=== PATIENT | male | born 1975 | race Caucasian/White ===

== ENCOUNTER 2017-09-25 08:29 | Emergency (ER) | payer BC ==
--- NOTE | 2017-09-25 08:55 | EDM.PDOC ---
ED HPI GENERAL MEDICAL PROBLEM - General Chief Complaint: Upper Extremity Injury/Pain Stated Complaint: RT SHOULDER HURTS Time Seen by Provider: 09/25/17 08:40 - History of Present Illness INITIAL COMMENTS - FREE TEXT/NARRATIVE: HISTORY AND PHYSICAL: History of present illness: The patient is a 42-year-old male with many years of right-sided shoulder pain and presents for reevaluation for persistent pain. 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 The patient has an appointment for physical therapy but cannot start that until next week. He is here requesting an MRI and any other medications he can provide to help him with the discomfort. He has no weakness in the right upper extremity and is right-hand dominant. He said he was told many years ago when he was in the [facility] that he had a rotator cuff injury but he did physical therapy and was told that it healed. He has never seen an orthopedic surgeon. He has seen a chiropractor in the past which was helping and less so that person one month ago but he has not returned. According to his family at the bedside he has been taking large doses of Aleve and ibuprofen but has no stomach pain Review of systems: As per history of present illness and below otherwise all systems reviewed and negative. Past medical history: As per history of present illness and as reviewed below otherwise noncontributory. Surgical history: As per history of present illness and as reviewed below otherwise noncontributory. Social history: No reported history of drug or alcohol abuse. Family history: As per history of present illness and as reviewed below otherwise noncontributory. Physical exam: Gen.: Well-developed overweight male who is nontoxic and vital signs been reviewed by me HEENT: Atraumatic, normocephalic, negative for conjunctival pallor or scleral icterus, mucous membranes moist, throat clear, neck supple, nontender, trachea midline. Lungs: Clear to auscultation, breath sounds equal bilaterally, chest nontender. Heart: S1S2, regular, negative for clicks, rubs, or JVD. Rate and rhythm no overt murmurs Abdomen: Nondistended , nontender. NABS, often Pelvis: Stable nontender. Genitourinary: Deferred. Rectal: Deferred. Extremities: Atraumatic, at the right shoulder there is no palpable bony tenderness or deformities and there is some trigger point tenderness on deep palpation of the joint space. The patient has decent range of motion passively and has some inhibition on full rotator cuff motion as well as some discomfort with abduction. Distally he has no neurosensory changes no palpable bony deformities and normal strength. The legs are negative for cords or calf pain. Neurovascular unremarkable. Neuro: Awake, alert, oriented. Cranial nerves II through XII unremarkable. Cerebellum unremarkable. Motor and sensory unremarkable throughout. Exam nonfocal. Diagnostics: [] Therapeutics: [] The patient requests MRI be ordered or performed and I advised him that that would not be capable of being done and that he will have to follow-up in the clinic for a prescription for that. He is currently on prednisone and take nonsteroidals and I told him that I could give him a few muscle relaxers as well as some pain meds to help him sleep that he can try. I will give him referral to orthopedics and have advised him to call the clinic Wednesday to be re- seen to get a prescription for an outpatient MRI. He says he has tried to call the clinic this week and his provider has not returned the calls. Impression: Chronic right shoulder pain Definitive disposition and diagnosis as appropriate pending reevaluation and review of above. R shoulder Pain Score (Numeric/FACES): 9 - Related Data Allergies Allergy/AdvReac Type Severity Reaction Status Date / Time No Known Allergies Allergy Verified 09/25/17 08:40 Home Meds: Home Meds Gabapentin [Neurontin] 300 mg PO TID 09/25/17 [History] Lisdexamfetamine Dimesylate [Vyvanse] 70 mg PO DAILY 09/25/17 [History] Montelukast [Singulair] 10 mg PO DAILY 09/25/17 [History] Omeprazole 20 mg PO DAILY 09/25/17 [History] Past Medical History Musculoskeletal History: Reports: Other (See Below) Other Musculoskeletal History: Right Shoulder Pain Psychiatric History: Reports: ADD Social & Family History - Family History Family Medical History: Noncontributory - Tobacco Use Smoking Status *Q: Current Every Day Smoker Years of Tobacco use: 20 Packs/Tins Daily: 1 - Caffeine Use Caffeine Use: Reports: Energy Drinks, Soda, Tea - Recreational Drug Use Recreational Drug Use: No Review of Systems - Review of Systems Review Of Systems: BERYL reveals no pertinent complaints other than HPI. ED EXAM, GENERAL - Physical Exam Exam: See Below (See dictation) Course - Vital Signs Last Recorded V/S: Last Vital Signs Temp 36.2 C 09/25/17 08:36 Pulse 76 09/25/17 08:36 Resp 16 09/25/17 08:36 BP 125/78 09/25/17 08:36 Pulse Ox 99 09/25/17 08:36 Departure - Departure Time of Disposition: 08:53 Disposition: Home, Self-Care 01 Condition: Good Clinical Impression: Chronic right shoulder pain - Discharge Information Referrals: PCP,None [Primary Care Provider] - Additional Instructions: The following information is given to patients seen in the emergency department who are being discharged to home. This information is to outline your options for follow-up care. We provide all patients seen in our emergency department with a follow-up referral. The need for follow-up, as well as the timing and circumstances, are variable depending upon the specifics of your emergency department visit. If you don't have a primary care physician on staff, we will provide you with a referral. We always advise you to contact your personal physician following an emergency department visit to inform them of the circumstance of the visit and for follow-up with them and/or the need for any referrals to a consulting specialist. The emergency department will also refer you to a specialist when appropriate. This referral assures that you have the opportunity for followup care with a specialist. All of these measure are taken in an effort to provide you with optimal care, which includes your followup. Under all circumstances we always encourage you to contact your private physician who remains a resource for coordinating your care. When calling for followup care, please make the office aware that this follow-up is from your recent emergency room visit. If for any reason you are refused follow-up, please contact the [facility] emergency department at and ask to speak to the emergency department charge nurse. [facility] Primary care- Internal Medicine and [facility] [address] [place] [id number] [facility] Specialty Care--Orthopedic clinic Professional Building [address] [place] [id number] Please keep your appointment with physical therapy and continue and finish the prednisone you back in the clinic and try to use the Aleve and ibuprofen appropriately per the package labeling. Please do not take the 2 together. Please try new medications you've been prescribed today only when you're at home. Please also call and make an appointment for follow-up with the orthopedics department and call the clinic on Wednesday to have a repeat visit with your provider to discuss your options for outpatient testing. Return to ER as needed and as discussed
== END 2017-09-25 09:02 | disposition home or self-care (01) ==
LOC: MW.ED 08:29
DX: G89.29 Other chronic pain (principal); M25.511 Pain in right shoulder; F17.210 Nicotine dependence, cigarettes, uncomplicated; Z79.899 Other long term (current) drug therapy
CPT/HCPCS: 99282; 99284

== ENCOUNTER 2017-12-08 09:48 | Day surgery (SDC) | payer BC ==
[~2017-12-08 09:48] MED LIST: Acetaminophen/HYDROcodone 325-10 MG Tab PO PRN; Ketorolac 10 MG Tab PO PRN; Lactated Ringers 1,000 ML IV SCH; ceFAZolin 2 GM in Premix Bag 1 BAG IV SCH
[2017-12-08] MEDS ORDERED: Lidocaine 2% 5 ML SDV ONE ×2 (09:53→10:31)
[2017-12-08] MEDS ORDERED: Dexamethasone 4 MG/ML 5 ML MDV ONE (09:53)
[2017-12-08] MEDS ORDERED: Bupivacaine 0.5% 30 ML SDV ONE (09:54)
--- NOTE | 2017-12-08 10:28 | PCM.PREANE ---
Preanesthetic Assessment - Anesthesia/Transfusion/Family Hx Anesthesia History: No Prior Anesthesia Transfusion History: No Prior Transfusion(s) - Review of Systems General: No Symptoms Pulmonary: No Symptoms Cardiovascular: No Symptoms Gastrointestinal: No Symptoms Neurological: No Symptoms Other: Reports: None - Physical Assessment NPO Status Date: 12/07/17 Height: 1.7 m Weight: 104.326 kg ASA Class: 1 Mental Status: Alert & Oriented x3 Airway Class: Mallampati = 2 Dentition: Reports: Normal Dentition ROM/Head Extension: Full Lungs: Clear to Auscultation, Normal Respiratory Effort Cardiovascular: Regular Rate, Regular Rhythm - Allergies Allergies/Adverse Reactions: Allergies Allergy/AdvReac Type Severity Reaction Status Date / Time No Known Allergies Allergy Verified 09/25/17 08:40 - Acknowledgements Anesthesia Type Planned: General Anesthesia Pt an Appropriate Candidate for the Planned Anesthesia: Yes Alternatives and Risks of Anesthesia Discussed w Pt/Guardian: Yes Pt/Guardian Understands and Agrees with Anesthesia Plan: Yes Additional Comments: PMH: GERD, ADHD, PLAN: GET for primary anesthetic, ISB for post op pain management PreAnesthesia Questionnaire Gastrointestinal History: Reports: GERD Musculoskeletal History: Reports: Fracture, Other (See Below) Other Musculoskeletal History: fx arm as a child, fx leg in highschool, Right Shoulder Pain Psychiatric History: Reports: ADD Endocrine/Metabolic History: Reports: Obesity/BMI 30+ - Past Surgical History Head Surgeries/Procedures: Reports: None - SUBSTANCE USE Smoking Status *Q: Current Every Day Smoker Tobacco Use Within Last Twelve Months: Cigarettes Recreational Drug Use History: No - HOME MEDS Home Medications: Home Meds Omeprazole 20 mg PO DAILY 09/25/17 [History] Diclofenac Sodium [Voltaren] 75 mg PO BID 12/03/17 [History] Lisdexamfetamine [Vyvanse] 70 mg PO DAILY 12/03/17 [History] Montelukast [Singulair] 10 mg PO DAILY 12/03/17 [History] - CURRENT (IN HOUSE) MEDS Current Meds: Current Medications Hydrocodone Bitart/Acetaminophen (Lyman 325-10 Mg) 1 - 2 tab PO Q4H PRN PRN Reason: Pain Cefazolin Sodium/Dextrose 2 gm (/ Premix) 50 mls @ 100 mls/hr IV ONCALL PIERRE Lactated Ringer's (Ringers, Lactated) 1,000 mls @ 100 mls/hr IV ASDIRECTED [facility] Ketorolac Tromethamine (Toradol) 10 mg PO Q6H PRN PRN Reason: Pain Stop: 12/13/17 08:01 Discontinued Medications Bupivacaine HCl (Marcaine 0.5%) Confirm Administered Dose 30 ml .ROUTE .STK-MED ONE Stop: 12/08/17 09:55 Dexamethasone (Dexamethasone) Confirm Administered Dose 20 mg .ROUTE .STK-MED ONE Stop: 12/08/17 09:54 Lidocaine (Xylocaine-Mpf 2%) Confirm Administered Dose 5 ml .ROUTE .STK-MED ONE Stop: 12/08/17 09:54
[2017-12-08] MEDS ORDERED: fentaNYL 250 MCG/5 ML SDV ONE (10:31)
[2017-12-08] MEDS ORDERED: Propofol 200 MG/20 ML SDV ONE ×2 (10:31→13:15)
[2017-12-08] MEDS ORDERED: Midazolam 1 MG/ML 2 ML SDV ONE (10:31)
[2017-12-08] MEDS ORDERED: Ondansetron 4 MG/2 ML SDV ONE (10:32)
[2017-12-08] MEDS ORDERED: Ketorolac 30 MG/ML SDV ONE (10:32)
[2017-12-08] MEDS ORDERED: Succinylcholine/Normal Saline 200 MG/10 ML Syringe ONE (10:32)
[2017-12-08] MEDS ORDERED: fentaNYL 100 MCG/2 ML SDV IVPUSH PRN ×2 (10:43→12:41)
[2017-12-08] MEDS ORDERED: Midazolam 1 MG/ML 2 ML SDV IVPUSH ONE (10:43)
--- NOTE | 2017-12-08 11:00 | PCM.SN ---
- Free Text/Narrative Note: procedure note ISB, consent obtained time out performed, sedated with versed and fentanyl, full monitors, local with lido, good twitch, no paresthesia, lbupiv 0.5% bupivicaine with 8 mg dexamethasone given in 5 ml increments, no comps.
[2017-12-08] MEDS ORDERED: ePHEDrine 50 MG/ML SDV ONE (12:37)
[2017-12-08] MEDS ORDERED: Phenylephrine/Normal Saline 100 MCG/ML 10 ML Syringe ONE (12:37)
[2017-12-08] MEDS ORDERED: HYDROmorphone 2 MG/ML Syringe IVPUSH ONE (12:41)
--- NOTE | 2017-12-08 13:49 | PCM.OPNOTE ---
- General Post-Op/Procedure Note Date of Surgery/Procedure: 12/08/17 Operative Procedure(s): R shoulder scope with SAD, extensive debridement, and RTCR Post-Op Diagnosis: R shoulder impingement. R biceps tendinopathy. R shoulder RTC tear Anesthesia Technique: General ET Tube, Regional Block Primary Surgeon: Candis Farnsworth Employee Placement Specialist: Johnathan Burrows in mLs: 10 Condition: Good Free Text/Narrative:: #[id number]
--- NOTE | 2017-12-08 15:40 | PCM.POSTAN ---
POST ANESTHESIA ASSESSMENT - MENTAL STATUS Mental Status: Alert, Oriented - RESPIRATORY Respiratory Status: Respiratory Rate WNL, Airway Patent, O2 Saturation Stable - CARDIOVASCULAR CV Status: Pulse Rate WNL, Blood Pressure Stable - GASTROINTESTINAL GI Status: No Symptoms - POST OP HYDRATION Hydration Status: Adequate & Stable
--- NOTE | 2017-12-08 15:40 | PCM48HPAN ---
Post Anesthesia Note - EVALUATION WITHIN 48HRS OF ANESTHETIC Vital Signs in Normal Range: Yes Patient Participated in Evaluation: Yes Respiratory Function Stable: Yes Airway Patent: Yes Cardiovascular Function Stable: Yes Hydration Status Stable: Yes Pain Control Satisfactory: Yes Nausea and Vomiting Control Satisfactory: Yes Mental Status Recovered: Yes
--- NOTE | 2017-12-08 19:02 | OR ---
SURGEON: Candis Farnsworth MD DATE OF PROCEDURE: 12/08/2017 PREOPERATIVE DIAGNOSES: 1. Right shoulder impingement syndrome. 2. Right shoulder biceps tendinopathy. 3. Right shoulder rotator cuff tear. POSTOPERATIVE DIAGNOSES: 1. Right shoulder impingement syndrome. 2. Right shoulder biceps tendinopathy. 3. Right shoulder rotator cuff tear. PROCEDURE: Right shoulder arthroscopy with: 1. Subacromial decompression with release of coracoacromial ligament and acromioplasty. 2. Extensive debridement including debridement of degenerative anterior labral tear and biceps tenotomy. 3. Arthroscopic rotator cuff repair. INVENTORY WORKER: Johnathan Burrows PA-C. ANESTHESIA: General and interscalene block. ESTIMATED BLOOD LOSS: 10 mL. TOURNIQUET TIME: 0 minutes. COMPLICATIONS: None. DVT PROPHYLAXIS: PAS boots to bilateral lower extremities. IMPLANTS USED: Arthrex 4.5 mm corkscrew anchor ([employer]) and 4.75 mm SwiveLock anchor ([employer]). BRIEF HISTORY: Durga is a 42-year-old male who has had complaint of progressive right shoulder pain. He had failed conservative treatment. Due to his lack of response to conservative treatment, I did recommend surgical intervention. The risks and goals of procedure were discussed with the patient and were documented preoperatively. He agreed to proceed. DESCRIPTION OF PROCEDURE: The patient was properly identified and brought to the operating room. He was transferred from the OR cart and placed on the operating table in supine position. General anesthesia was administered. An interscalene block had been administered preoperatively. After adequate anesthesia was obtained, he was placed in a beach-chair position. Care was taken to pad all bony prominences. His head was secured. The right upper extremity was then prepped in standard fashion using ChloraPrep solution. It was then sterilely draped. A time-out was performed to ensure correct site and procedure. Preoperative antibiotics were given. The surgical site had been marked preoperatively. Bony landmarks were identified with a marking pen. Approximately 30 mL of normal saline was introduced into the glenohumeral joint. A posterior portal was established. Blunt trocar and cannula were introduced into the glenohumeral joint. Camera, inflow, and outflow were assembled. The rotator interval showed significant synovitis. An anterior portal was established. A probe was inserted. The subscapularis was visualized and probed. It was found to be intact. No loose bodies were present within the subscapular recess. The anterior labrum was then inspected. It was quite degenerative in nature and there was tearing anteriorly and superiorly. The biceps tendon showed synovitis along its length as it was pulled into the joint. Its attachment to the superior glenoid labrum also appeared torn. Due to this, I elected to proceed with a biceps tenotomy. The biceps tendon was amputated at its insertion onto the glenoid labrum. The biceps tendon retracted easily into the biceps tendon sheath. Its attachment to the labrum was then smoothed. The frayed degenerative tearing of the labrum anteriorly was also resected to a stable remnant. The posterior labrum did not show significant tearing. Both the glenoid and humeral head were inspected. No degenerative changes were found. The axillary pouch showed no loose bodies. The arm was then brought into an abducted and externally rotated position. The bare area was noted posteriorly. As I progressed forward, there was some minor fraying along the attachment site. At the anterior portion of the supraspinatus, there was found to be a full-thickness tear, which appeared quite small. The arm was then brought back into a neutral position. Instruments were removed from the glenohumeral joint. Blunt trocar and cannula were then introduced into the subacromial space. Camera, inflow, and outflow were again assembled. A lateral portal was then established. A shaver was introduced. He did have a significant bursal tissue present in the subacromial space. Some of this was quite hemorrhagic. Using a combination of the shaver and electrocautery, an extensive bursectomy was performed to allow for better visualization. A type 2 acromion was noted, which was quite downsloping. The coracoacromial ligament was released along the undersurface. An acromioplasty was then performed using a 5.0 mm bur. This provided good decompression of the subacromial space. The rotator cuff was then inspected. Majority of the cuff was intact, however, there was a small crescentic tear along the very anterior portion of the supraspinatus. A cuff grasper was used and the tear was able to easily be reapproximated to the footprint. The footprint was then cleared of soft tissue using electrocautery. I then used the bur to roughen the bony surface to bleeding bone. An additional portal site was established to help with suture management. Two passport cannulas were then placed. I felt that one corkscrew anchor would give us adequate fixation. The corkscrew anchor was placed just lateral to the articular surface at approximately a 45 degrees angle. Bone quality appeared intact. The sutures were then passed through the rotator cuff tissue in an [id number] fashion and were tied in a posterior-to- anterior fashion. This provided good reapproximation of the rotator cuff to the bony footprint. I felt that further compression of the cuff would give better fixation and I did place a lateral row using a SwiveLock anchor. All sutures from the repair were incorporated and this did provide further compression of the rotator cuff tendon to the bone. At completion, the repair was probed and found to be nearly watertight. Instruments were then removed from the shoulder. The portal sites were closed with 3-0 nylon. Xeroform gauze was placed over the wound and a bulky dressing was applied. He was placed into a shoulder immobilizer. He was awakened from his anesthetic and transferred back to the operating room cart. He was brought to recovery room in stable condition. All needle and sponge counts were correct. KENYON / NAHOMI /[id number]
== END 2017-12-08 15:50 | disposition home or self-care (01) ==
LOC: MW.SDS 09:48
PROVIDERS: ATTEND Orthopaedic Surgery
DX: M75.41 Impingement syndrome of right shoulder (principal); M75.21 Bicipital tendinitis, right shoulder; M75.101 Unspecified rotator cuff tear or rupture of right shoulder, not specified as traumatic; J30.9 Allergic rhinitis, unspecified; K21.9 Gastro-esophageal reflux disease without esophagitis; E66.9 Obesity, unspecified; F17.210 Nicotine dependence, cigarettes, uncomplicated; Z79.899 Other long term (current) drug therapy; Z68.36 Body mass index [BMI] 36.0-36.9, adult
CPT/HCPCS: 23405; 29823; 29827; C1713; J1100; J1885; J2250; J2405; J3010; J7120; 01630; 64415; 88304; J2704

== ENCOUNTER 2021-12-10 06:41 | Day surgery (SDC) | payer OTHER ==
[~2021-12-10 06:41] MED LIST changes: -Acetaminophen/HYDROcodone 325-10 MG Tab PO PRN; -Ketorolac 10 MG Tab PO PRN; -ceFAZolin 2 GM in Premix Bag 1 BAG IV SCH
[2021-12-10] MEDS ORDERED: Midazolam 1 MG/ML 2 ML SDV ONE (07:21)
[2021-12-10] MEDS ORDERED: Propofol 200 MG/20 ML SDV ONE (07:21)
[2021-12-10] MEDS ORDERED: fentaNYL 250 MCG/5 ML SDV ONE (07:21)
[2021-12-10] MEDS ORDERED: Albuterol 0.083% 2.5 MG/3 ML Neb Soln NEB PRN (07:23)
[2021-12-10] MEDS ORDERED: Ondansetron 4 MG/2 ML SDV IVPUSH PRN (07:23)
[2021-12-10] MEDS ORDERED: fentaNYL 100 MCG/2 ML SDV IVPUSH PRN (07:23)
[2021-12-10] MEDS ORDERED: Metoclopramide 10 MG/2 ML SDV IVPUSH PRN (07:23)
[2021-12-10] MEDS ORDERED: Naloxone 0.4 MG/ML SDV IVPUSH PRN (07:23)
[2021-12-10] MEDS ORDERED: HYDROmorphone 1 MG/ML Syringe IVPUSH PRN (07:23)
[2021-12-10] MEDS ORDERED: Ropivacaine 0.5% 5 MG/ML 30 ML SDV ONE (07:24)
[2021-12-10] MEDS ORDERED: Rocuronium Bromide 50 MG/5 ML Syringe ONE ×2 (07:24→09:46)
[2021-12-10] MEDS ORDERED: Dexamethasone 4 MG/ML 5 ML MDV ONE (07:29)
[2021-12-10] MEDS ORDERED: Bupivacaine 25%/EPINEPHrine/PF 30 ML ONE (07:35)
[2021-12-10] MEDS ORDERED: ceFAZolin 2 GM in Premix Bag 1 BAG IV SCH (08:00)
[2021-12-10] MEDS ORDERED: Bupivacaine Liposome 1.3% 20 ML SDV ONE (08:00)
[2021-12-10] MEDS ORDERED: Ketamine 500 mg/10 ML MDV ONE (08:31)
[2021-12-10] MEDS ORDERED: fentaNYL 100 MCG/2 ML SDV ONE (09:21)
[2021-12-10] MEDS ORDERED: Ondansetron 4 MG/2 ML SDV ONE (09:45)
[2021-12-10] MEDS ORDERED: Ketorolac 30 MG/ML SDV ONE (09:45)
[2021-12-10] MEDS ORDERED: Sugammadex Sodium 200 MG/2 ML VIAL ONE (09:45)
[2021-12-10] MEDS ORDERED: ePHEDrine 50 MG/ML SDV ONE (09:45)
[2021-12-10] MEDS ORDERED: Glycopyrrolate 0.2 MG/ML SDV ONE (09:45)
== END 2021-12-10 12:55 | disposition home or self-care (01) ==
LOC: MW.SDS 06:41
PROVIDERS: ATTEND Orthopaedic Surgery
DX: M75.102 Unspecified rotator cuff tear or rupture of left shoulder, not specified as traumatic (principal); K21.9 Gastro-esophageal reflux disease without esophagitis; F17.210 Nicotine dependence, cigarettes, uncomplicated; E66.9 Obesity, unspecified; Z98.890 Other specified postprocedural states; Z79.899 Other long term (current) drug therapy
CPT/HCPCS: 29827; J0131; J0330; J0690; J1100; J1885; J2250; J2370; J2405; J2704; J2795; J3010; J3490; J7120; 01630; 64415